=== PATIENT | female | born 1945 | race Caucasian/White ===

== ENCOUNTER → 2017-03-30 | Outpatient (CLI) | payer OTHER ==
[~2017-03-30] MED LIST: ADULT LOW DOSE81 MG PO; ASPIRIN325 PO; COLACE100 MG PO; DOXYCYCLINE 10100 MG PO; EFFIENT10 MG PO; FISH OIL; FISH OIL 1,001000 M2 PO; FISH OIL 1,2001 EAC4 PO; FLAX OIL1000 MG PO; FLAXSEED1000 MG PO; GARLIC OIL1 EAC1 PO; GLUCOSAMINE &1 EACH PO; LEVOTHROID25 MCG PO; LIPITOR40 MG PO; LISINOPRIL10 MG PO; RESTASIS1 EACH OPHTHALMIC; VITAMIN C100 M1 PO; VITS
== END ==
LOC: RAD 03-23 10:28
DX: Z12.31 Encounter for screening mammogram for malignant neoplasm of breast (principal)

== ENCOUNTER → 2017-12-06 | Outpatient (CLI) | payer OTHER | LOC: CAT 11:17 | DX: J32.0 Chronic maxillary sinusitis (principal) ==

== ENCOUNTER → 2018-06-03 | Outpatient (CLI) | payer OTHER | LOC: RAD 01:09 | DX: Z12.31 Encounter for screening mammogram for malignant neoplasm of breast (principal) ==

== ENCOUNTER 2019-01-13 04:26 | Emergency (ER) | payer OTHER ==
[~2019-01-13] VITALS: Ht 165.1 cm; Wt 81.7 kg
[2019-01-13] MEDS ORDERED: MAGOX 400400 MG PO (04:47)
[2019-01-13] MEDS ORDERED: OPTIFLEX-C400 MG PO (04:47)
[2019-01-13 04:56] LABS: ABSOLUTE NEUTROPHILS 2.5 thou/uL (1.4-8.2); BASOPHILS 0.8 % (0.0-2.0); HEMATOCRIT 33.7 % (37.0-47.0); HEMOGLOBIN 11.7 gm/dL (12.0-15.0); LYMPHOCYTES 33.8 % (24.0-44.0); MCH 33.7 pg (26.0-34.0); MCHC 34.6 g/dL (28.0-37.0); MCV 97.4 fL (80.0-100.0); MONOCYTES 10.6 % (1.0-8.0); PLATELET COUNT 335 thou/uL (150-400); POLYS 47.8 % (36.0-66.0); RBC 3.46 mil/uL (4.20-5.00); RDW 14.7 % (10.5-14.5); WBC 5.3 thou/uL (4.0-11.0)
[2019-01-13 05:01] LABS: ANION GAP 9 mmol/L (7-16); BUN 24 mg/dL (7-18); CHLORIDE 105 mmol/L (98-107); CO2 26 mmol/L (21-32); GLUCOSE 119 mg/dL (74-106); POTASSIUM 4.1 mmol/L (3.5-5.1); SODIUM 140 mmol/L (136-145)
[2019-01-13 05:11] LABS: ALBUMIN 4.1 g/dL (3.4-5.0); SGOT 17 U/L (15-37); SGPT 29 U/L (30-65); TOTAL BILIRUBIN 0.4 mg/dL (<0.1-1.0); TOTAL PROTEIN 7.1 g/dL (6.4-8.2); TROPONIN-I <0.06 ng/mL (<0.06)
[2019-01-13] MEDS ORDERED: VALIUM2 MG PO ×2 (05:12→06:02)
[2019-01-13] MEDS ORDERED: ANTIVERT25 MG PO ×2 (05:12→06:02)
[2019-01-13 06:27] VITALS: BP 142/68
--- NOTE | 2019-01-13 18:10 | EKG ---
[address] [address] ELECTROCARDIOGRAM REPORT Name: ELIANE ROSARIO Room [facility]: [id number] Admission: 01/13/19 Attend Phys: Discharge: 01/13/19 Date of : 41 Report #: [id number] THIS REPORT FOR: //name// [facility] ED Test Date: 2019-01-13 Test Time: 04:40:53 Pat Name: ELIANE ROSARIO Department: Room: Gender: F [employer] [place]: CAROLINE : 1945 Requested By: Timothy Cleveland Order Number: [id number] MD: Wolf Palmer Measurements Intervals [place] Rate: 75 P: 61 CO: 151 QRS: 10 QRSD: 105 T: 37 QT: 393 QTc: 439 Interpretive Statements Sinus rhythm Abnormal R-wave progression, early transition Compared to ECG 12/14/2014 11:20:49 No significant changes Electronically Signed On 01-13-2019 18:10:40 CDT by Wolf Palmer [email or web address] <ELECTRONICALLY SIGNED> By: Wolf Palmer MD, [facility] 01/13/19 1810 0440 0440 oWlf Palmer MD, FACC /EPI
== END 2019-01-13 06:30 | disposition home or self-care (01) ==
LOC: ER 04:26
PROVIDERS: Emergency Medicine
DX: H81.10 Benign paroxysmal vertigo, unspecified ear (principal); R42 Dizziness and giddiness; I10 Essential (primary) hypertension; E78.5 Hyperlipidemia, unspecified; Z88.5 Allergy status to narcotic agent; Z88.8 Allergy status to other drugs, medicaments and biological substances; Z79.899 Other long term (current) drug therapy; Z79.82 Long term (current) use of aspirin; Z90.710 Acquired absence of both cervix and uterus; Z90.49 Acquired absence of other specified parts of digestive tract; Z95.5 Presence of coronary angioplasty implant and graft

== ENCOUNTER → 2019-08-08 | Outpatient (CLI) | payer OTHER ==
[~2019-08-08] MED LIST changes: +ANTIVERT25 MG PO; +MAGOX 400400 MG PO; +OPTIFLEX-C400 MG PO; +VALIUM2 MG PO
== END ==
LOC: SJCVC 13:31
DX: I10 Essential (primary) hypertension (principal); I25.10 Atherosclerotic heart disease of native coronary artery without angina pectoris; E78.5 Hyperlipidemia, unspecified; I65.23 Occlusion and stenosis of bilateral carotid arteries; Z79.82 Long term (current) use of aspirin; Z79.899 Other long term (current) drug therapy

== ENCOUNTER → 2020-02-07 | Outpatient (CLI) | payer OTHER | LOC: SJCVCIMAG 07:08 | PROVIDERS: ATTEND Internal Medicine | DX: I08.1 Rheumatic disorders of both mitral and tricuspid valves (principal); R00.0 Tachycardia, unspecified; I49.1 Atrial premature depolarization; I25.10 Atherosclerotic heart disease of native coronary artery without angina pectoris; E78.5 Hyperlipidemia, unspecified; I10 Essential (primary) hypertension; Z95.5 Presence of coronary angioplasty implant and graft; Z90.710 Acquired absence of both cervix and uterus ==

== ENCOUNTER → 2020-08-14 | Outpatient (CLI) | payer OTHER | LOC: SJCVC 10:14 | PROVIDERS: ATTEND Internal Medicine | DX: I25.10 Atherosclerotic heart disease of native coronary artery without angina pectoris (principal); I10 Essential (primary) hypertension; E78.5 Hyperlipidemia, unspecified; I65.23 Occlusion and stenosis of bilateral carotid arteries; E11.9 Type 2 diabetes mellitus without complications; E78.00 Pure hypercholesterolemia, unspecified; Z79.82 Long term (current) use of aspirin; Z79.899 Other long term (current) drug therapy; Z82.49 Family history of ischemic heart disease and other diseases of the circulatory system ==

== ENCOUNTER → 2021-02-19 | Outpatient (CLI) | payer OTHER | LOC: SJCVCIMAG 07:25 | PROVIDERS: ATTEND Internal Medicine | DX: I65.23 Occlusion and stenosis of bilateral carotid arteries (principal); I49.3 Ventricular premature depolarization; I25.10 Atherosclerotic heart disease of native coronary artery without angina pectoris; I10 Essential (primary) hypertension; E78.5 Hyperlipidemia, unspecified; E11.9 Type 2 diabetes mellitus without complications; E78.00 Pure hypercholesterolemia, unspecified; Z79.82 Long term (current) use of aspirin; Z79.899 Other long term (current) drug therapy; Z72.89 Other problems related to lifestyle ==